=== PATIENT | female | born 1960 | race Caucasian/White ===

== ENCOUNTER 2021-03-02 12:30 | Emergency (ER) | payer OTHER ==
[~2021-03-02] VITALS: Ht 167.6 cm; Wt 126.0 kg
[2021-03-02] MEDS ORDERED: OXYcodone/APAP 5/325MG TABLET ONE (13:49)
[2021-03-02] MEDS ORDERED: OXYcodone/APAP 5/325MG TABLET PO ONE (14:00)
--- NOTE | 2021-03-02 14:00 | NUR ---
PT MEDICATED PER SEP. PT LEFT FOOT ELEVATED AND ICE BAD APPLIED TO FOOT.
--- NOTE | 2021-03-02 15:06 | NUR ---
PT REC'VD DISCHARGE INSTRUCTIONS AND EDUCATION. PT HAD NO FURTHER QUESTIONS. PT GIVEN CANE AND REC'VD INSTRUCTIONS ON USE.
[2021-03-02 15:07] VITALS: BP 110/66
--- NOTE | 2021-03-02 15:10 | NUR ---
PT AMBULATED WITH SIGNIFICANT OTHER, STEADY GAIT.
== END 2021-03-02 15:34 | disposition home or self-care (01) ==
LOC: ED 15:21
DX: G89.29 Other chronic pain (principal); M79.672 Pain in left foot
CPT/HCPCS: 99283